=== PATIENT | male | born 1990 | race Caucasian/White ===

== ENCOUNTER 2022-02-18 13:48 | Emergency (ER) | payer MEDICAID ==
[~2022-02-18] VITALS: Ht 167.6 cm; Wt 63.0 kg
[2022-02-18] MEDS ORDERED: KETOROLAC 60MG/2ML VIAL IM STA (17:32)
[2022-02-18 17:43] VITALS: BP 127/77
[2022-02-18 17:55] LABS: CLARITY URINE CLEAR (CLEAR); COLOR URINE DARK YELLOW (YELLOW); KETONES URINE 1+ (NEGATIVE); LEUKOCYTE ESTERASE URINE NEGATIVE (NEGATIVE); NITRITE URINE NEGATIVE (NEGATIVE); OCCULT BLOOD URINE NEGATIVE (NEGATIVE); PH URINE 5.5 (4.5-8.0); PROTEIN URINE 2+ (NEGATIVE)
[2022-02-18 18:06] LABS: BASOPHILS % 0.2 % (0.0-2.0); HEMATOCRIT. 46.8 % (42.0-52.0); HEMOGLOBIN. 16.1 g/dL (14.0-18.0); LYMPHOCYTES % 16.2 % (20.0-50.0); MEAN CORPUSCULAR HEMOGLOBIN 32.4 pg (28.0-32.0); MEAN CORPUSCULAR VOLUME 93.9 fL (80.0-94.0); MEAN PLATELET VOLUME 7.8 fl (7.4-10.4); MONOCYTES % 8.5 % (2.0-8.0); NEUTROPHILS % 75.1 % (40.0-76.0); PLATELET 193 x1000/uL (130-400); RED BLOOD CELL COUNT 4.98 mill/uL (4.7-6.1); RED CELL DISTRIBUTION WIDTH 14.9 % (11.6-14.6)
[2022-02-18 18:14] LABS: CHLORIDE 94 mEq/L (98-107)
[2022-02-18] MEDS ORDERED: IBUP-2028 MT (20:06)
== END 2022-02-18 20:21 | disposition home or self-care (01) ==
LOC: ER 13:48
DX: R19.7 Diarrhea, unspecified (principal)
CPT/HCPCS: 36415; 74176; 76705; 80053; 81003; 83690; 85025; 93005; 96372; 99285; J1885